=== PATIENT | male | born 1945 | race African-American/Black ===

== ENCOUNTER 2021-06-23 15:01 | Emergency (ER) | payer OTHER ==
[~2021-06-23] VITALS: Ht 177.8 cm; Wt 130.0 kg
[2021-06-23] MEDS ORDERED: VANCOMYCIN 1G PREMIX 200 ML IV ONE (15:45)
[2021-06-23] MEDS ORDERED: SODIUM CHLORIDE 0.9% 1000ML BAG (SEPSIS BOLUS) IV ONE ×2 (15:45→17:15)
[2021-06-23 16:46] LABS: BASOPHILS % 0.5 % (0.0-2.0); EOSINOPHILS % 0.1 % (0.0-5.0); HEMATOCRIT. 38.4 % (42.0-52.0); HEMOGLOBIN. 12.3 g/dL (14.0-18.0); LYMPHOCYTES % 7.5 % (20.0-50.0); MEAN CORPUSCULAR HEMOGLOBIN 28.6 pg (28.0-32.0); MEAN CORPUSCULAR VOLUME 89.6 fL (80.0-94.0); MEAN PLATELET VOLUME 8.6 fl (7.4-10.4); MONOCYTES % 8.5 % (2.0-8.0); NEUTROPHILS % 83.4 % (40.0-76.0); PLATELET 325 x1000/uL (130-400); RED BLOOD CELL COUNT 4.29 mill/uL (4.7-6.1); RED CELL DISTRIBUTION WIDTH 16.2 % (11.6-14.6)
[2021-06-23 16:53] LABS: CHLORIDE 116 mEq/L (98-107)
[2021-06-23 16:59] LABS: ETHANOL BLOOD < 10 mg/dL
[2021-06-23] MEDS ORDERED: MORPHINE SULFATE 4 MG/ML CPJ (NOT FOR IM USE) IV ONE (18:30)
[2021-06-23] MEDS ORDERED: POTASSIUM CHLORIDE INJ 40 MEQ in DEXT 5% WATER 500 ML IV ONE (19:15)
[2021-06-23] MEDS ORDERED: KCL 20MEQ/100ML X 2 FOR TOTAL KCL 40MEQ/200ML IV SCH (20:00)
[2021-06-23] MEDS ORDERED: FENTANYL CITRATE/PF 50MCG/ML 2ML VIAL IV ONE (22:15)
[2021-06-24 01:30] VITALS: BP 111/58
== END 2021-06-24 02:45 | disposition short-term general hospital (02) ==
LOC: ER 15:01 → CANBEDREQ 06-24 20:54
DX: R52 Pain, unspecified (principal); L89.90 Pressure ulcer of unspecified site, unspecified stage; A41.9 Sepsis, unspecified organism; R65.20 Severe sepsis without septic shock; E87.6 Hypokalemia; E83.51 Hypocalcemia; I95.9 Hypotension, unspecified; I51.7 Cardiomegaly; Z20.822 Contact with and (suspected) exposure to COVID-19; Z95.810 Presence of automatic (implantable) cardiac defibrillator
CPT/HCPCS: 36415; 71045; 80053; 80320; 83605; 84145; 84484; 85025; 87040; 87426; 93005; 96365; 96375; 99291; J2270; J3010; J3370; J3480; J7030; J7040; J7060; G0480